=== PATIENT | female | born 1995 | race Two or more races ===

== ENCOUNTER 2016-07-22 01:25 | Inpatient (IN) | payer OTHER ==
[~2016-07-22] VITALS: Ht 162.6 cm; Wt 84.8 kg
[~2016-07-22 01:25] MED LIST: FAMC500T2 PO; HYDR25CA PO; IBUP-1060 PO; PNV1TABL25 PO
[2016-07-22] MEDS ORDERED: IV RINGERS,LACTATED 1000ML 1,000 ML IV SCH (02:05)
[2016-07-22] MEDS ORDERED: LIDOCAINE 1% PF 30 ML VIAL. INJ PRN (02:15)
[2016-07-22] MEDS ORDERED: ONDANSETRON PF 4 MG/2 ML VIAL. IV PRN ×2 (02:15→04:00)
[2016-07-22] MEDS ORDERED: TERBUTALINE 1 MG/ML VIAL. SQ PRN (02:15)
[2016-07-22] MEDS ORDERED: OXYTOCIN 30 UNIT/500 ML PREMIX 500 ML IV PRN ×2 (02:15→10:30)
[2016-07-22] MEDS ORDERED: 0.9 % SODIUM CHLORIDE 10 ML DISP.SYRIN. IV PRN ×2 (02:15→10:30)
[2016-07-22] MEDS ORDERED: fentaNYL PF VIAL 100 MCG/2 ML VIAL IV PRN (02:15)
[2016-07-22] MEDS ORDERED: IBUPROFEN 600 MG TABLET. PO PRN (02:15)
[2016-07-22 02:44] LABS: BILIRUBIN,URINE SMALL (NEG); GLUCOSE,URINE NEGATIVE (NEG); NITRITE,URINE NEGATIVE (NEG); PROTEIN,URINE 30 mg/dL (NEG-TRACE)
[2016-07-22 02:49] LABS: RBC,URINE 0 /HPF (0-2)
[2016-07-22 02:50] LABS: BACTERIA,URINE FEW /HPF (0-FEW); SQUAMOUS EPITHELIAL CELL,UR MOD /LPF
[2016-07-22 02:51] LABS: BARBITURATES NEG (NEG); BENZODIAZEPINES NEG (NEG); CANNABINOIDS NEG (NEG); COCAINE NEG (NEG); METHADONE NEG (NEG); OPIATES NEG (NEG); PHENCYCLIDINE NEG (NEG)
[2016-07-22 02:53] VITALS: BP 124/59
[2016-07-22 02:57] LABS: BASO % 1 % (0-3); EOS % 1 % (0-3); HEMATOCRIT 34.9 % (36.0-47.0); HEMOGLOBIN 11.6 g/dL (12.0-15.5); LYMPH # 1.2 x10^3/uL (1.0-4.8); LYMPH % 15 % (24-48); MEAN CORPUSCULAR HEMOGLOBIN 27 pg (25-35); MEAN CORPUSCULAR HGB CONC 33 g/dL (31-37); MEAN CORPUSCULAR VOLUME 81 fL (79-100); MONO % 5 % (0-9); NEUT % 80 % (31-73); PLATELET COUNT 229 x10^3/uL (140-400); RED BLOOD COUNT 4.33 x10^6/uL (3.50-5.40); RED CELL DISTRIBUTION WIDTH 16.2 % (11.5-14.5); WHITE BLOOD COUNT 8.6 x10^3/uL (4.0-11.0)
[2016-07-22] MEDS ORDERED: PENICILLIN G K 5,000,000 UNIT in IV NORMAL SALINE 100ML 100 ML IV ONE (03:00)
[2016-07-22] MEDS ORDERED: ROPIVacaine 0.2% IN 0.9%NACL PF 40 MG/20 ML DISP.SYRIN. ONE ×2 (03:00→03:14)
[2016-07-22] MEDS ORDERED: L&D EPIDURAL CASSETTE 100 ML EP ONE (03:14)
[2016-07-22] MEDS ORDERED: fentaNYL PF VIAL 100 MCG/2 ML VIAL EPI ONE (04:00)
[2016-07-22] MEDS ORDERED: ROPIVacaine 0.2% PF 10 ML VIAL. EPI ONE (04:00)
[2016-07-22] MEDS ORDERED: NALOXONE 0.4 MG/ML VIAL. IV PRN (04:00)
[2016-07-22] MEDS ORDERED: L&D EPIDURAL CASSETTE 100 ML EP PRN (04:00)
[2016-07-22] MEDS ORDERED: ePHEDrine PF IN SALINE 50 MG/5 ML DISP.SYRIN IV PRN (04:00)
[2016-07-22] MEDS: IV RINGERS,LACTATED 1000ML 1,000 ML IV SCH ×2 (04:11→08:02)
[2016-07-22] MEDS ORDERED: PENICILLIN G K 2,500,000 UNIT in IV NORMAL SALINE 50ML 50 ML IV SCH (07:00)
--- NOTE | 2016-07-22 10:22 | PDOC1 ---
OB - History Hx of Present Care: Limited Care Ultrasounds: No ultrasounds Obstetrical Complications: None Medical Complications: None Past Family/Social History * Past Medical, Surgical, Family and Obstetric Histories reviewed from chart. Blood Type: Unknown Rubella: Unknown RPR/VDRL: Unknown GBS Status: Unknown HBsAG: Unknown OB - Chief Complaint & HPI Date of Admission: Date of Admission: July 22, 2016 at 01:25 Chief Complaint/History : 3 Para: 2 EGA: 39 Reason for admission: active labor Admission Nurse Assessment Rev: Yes Problems: OB - Admission Exam Physical Exam Vitals: VS - Last 72 Hours, by Label Date Time Temp Pulse Resp B/P (MAP) Pulse Ox O2 Delivery O2 Flow Rate FiO2 07/22/16 04:12 18 07/22/16 03:00 18 07/22/16 02:53 96.6 77 18 124/59 (80) Room Air 96.6 07/22/16 02:44 18 HEENT: Normal Heart: Regular Rate Lungs: Clear Abdomen: Gravid, Non tender, Soft Extremities: Edema Reflexes: Normal Cervical Dilatation: 3cm Effacement: 75% Station: -2 Membranes: Intact Amniotic Fluid: Thick Meconium Heart Rate: Normal Accelerations: Accelerations Present Decelerations: No decelerations Halfway Variability: Moderate Contractions on Admission: < 5 Minutes Apart Intensity: Moderate Text A: 39 wks IUP Active labor GBS unknown P: Admit for labor management. Start Pen G prophylaxis. MICHAEL QUINTANA Jr, MD July 22, 2016 10:22
--- NOTE | 2016-07-22 10:23 | PDOC ---
VAGINAL DELIVERY DATE DATE: 07/22/16 TIME: 10:22 : 3 Para: 3 EGA: 39 VAGINAL DELIVERY: VTX VACCUM ASSISTED: No PLACENTA: Spontaneous 8/8 SEX: Male WEIGHT Weight [ pending] Nuchal Cord: No Amniotic Fluid: Thin Meconium PAIN: Epidural EPISIOTOMY: No EXTENSION: No EBL 300 ml COMPLICATIONS none CONDITION pt. stable Signs of Intrauterine Infectio: None Shoulder Dystocia: No Problems: MICHAEL QUINTANA Jr, MD July 22, 2016 10:23
[2016-07-22] MEDS ORDERED: HYDROCORTISONE 1% TOPICAL OINTMENT 30GM TUBE. TP PRN (10:30)
[2016-07-22] MEDS ORDERED: ACETAMINOPHEN 325 MG TABLET. PO PRN (10:30)
[2016-07-22] MEDS ORDERED: MAG HYDROX/ALUMINUM HYD/SIMETH 30 ML ORAL.SUSP PO PRN (10:30)
[2016-07-22] MEDS ORDERED: MAGNESIUM HYDROXIDE 2,400 MG/30 ML ORAL.SUSP. PO PRN (10:30)
[2016-07-22] MEDS ORDERED: diphenhydrAMINE HCL 25 MG CAPSULE PO PRN (10:30)
[2016-07-22] MEDS ORDERED: BENZOCAINE 20% TOPICAL AEROSOL SPRAY 57GM CAN. TP PRN (10:30)
[2016-07-22] MEDS ORDERED: SIMETHICONE 80 MG TAB.CHEW PO PRN (10:30)
[2016-07-22] MEDS ORDERED: MMR per PROTOCOL. MC PRN (10:30)
[2016-07-22] MEDS ORDERED: ZOLPIDEM 5 MG TABLET. PO PRN (10:30)
[2016-07-22] MEDS ORDERED: PHENYLEPH/MINERAL OIL/PETROLAT RECTAL OINTMENT 28GM TUBE. RC PRN (10:30)
[2016-07-22] MEDS: IBUPROFEN 800 MG TABLET. PO PRN ×2 (12:31→22:25)
[2016-07-22 12:45] VITALS: BP 105/62
[2016-07-22 14:10] VITALS: BP 114/65
[2016-07-22] MEDS: oxyCODONE/APAP 5/325 1 TAB TABLET PO PRN (17:44)
[2016-07-22 18:32] VITALS: BP 116/78
[2016-07-22 21:54] VITALS: BP 122/71
[2016-07-23] MEDS: oxyCODONE/APAP 5/325 1 TAB TABLET PO PRN ×2 (00:32→22:20)
[2016-07-23 02:00] VITALS: BP 96/61
--- NOTE | 2016-07-23 04:45 | PDOC ---
Provider Note Provider Note Doing well VSS Uterus NTTP FU in AM DARYL WEIR MD July 23, 2016 04:45
[2016-07-23 05:07] VITALS: BP 97/49
[2016-07-23 05:15] LABS: BASO # 0.1 x10^3/uL (0.0-0.2); BASO % 1 % (0-3); EOS % 1 % (0-3); HEMOGLOBIN 10.9 g/dL (12.0-15.5); LYMPH # 1.8 x10^3/uL (1.0-4.8); LYMPH % 18 % (24-48); MEAN CORPUSCULAR HEMOGLOBIN 27 pg (25-35); MEAN CORPUSCULAR HGB CONC 33 g/dL (31-37); MEAN CORPUSCULAR VOLUME 81 fL (79-100); MONO % 5 % (0-9); NEUT % 77 % (31-73); PLATELET COUNT 220 x10^3/uL (140-400); RED BLOOD COUNT 4.09 x10^6/uL (3.50-5.40); RED CELL DISTRIBUTION WIDTH 16.1 % (11.5-14.5); WHITE BLOOD COUNT 10.4 x10^3/uL (4.0-11.0)
[2016-07-23] MEDS: FERROUS SULFATE 325 MG TABLET. PO SCH ×2 (08:43→17:10)
[2016-07-23] MEDS: IBUPROFEN 800 MG TABLET. PO PRN ×2 (08:43→15:58)
[2016-07-23] MEDS: DOCUSATE SODIUM 100 MG CAPSULE. PO PRN ×2 (08:43→22:20)
[2016-07-23 11:30] VITALS: BP 99/51
[2016-07-23 15:15] VITALS: BP 120/69
[2016-07-23 20:45] VITALS: BP 110/69
[2016-07-24 06:00] VITALS: BP 118/71
[2016-07-24] MEDS: IBUPROFEN 800 MG TABLET. PO PRN (06:05)
[2016-07-24] MEDS: FERROUS SULFATE 325 MG TABLET. PO SCH (08:17)
--- NOTE | 2016-07-24 08:38 | PDOC3 ---
OB DISCHARGE SUMMARY DATE OF ADMISSION: 07/22/16 DATE OF DISCHARGE: 07/24/16 REASON FOR ADMISSION: Onset of labor INTRAPARTUM PROCEDURES: Spontanous Vag Deliv PROCEDURES: None OPERATIONS: None DISCHARGE DIAGNOSIS: Term Delivered DISCHARGE INFORMATION: Activity, Diet HOSPITAL COURSE Unremarkable CONDITION AT DISCHARGE Stable DARYL WEIR MD July 24, 2016 08:38
[2016-07-24] MEDS ORDERED: HYDR-971 PO (08:40)
[2016-07-24] MEDS ORDERED: NAPR500T3 PO (08:40)
[2016-07-24 11:30] VITALS: BP 110/55
[2016-07-26 11:21] LABS: RPR REFLEX Non Reactive (Non Reactive)
== END 2016-07-24 12:31 | disposition home or self-care (01) | DRG 775 ==
LOC: OBSVTOIN 01:25 → 3 SO LND 01:25 → 3 NORTH 13:03
PROVIDERS: ADMIT Obstetrics & Gynecology; ATTEND Obstetrics & Gynecology
PROC: 10E0XZZ Delivery of Products of Conception, External Approach (ICD-10-PCS; principal; 2016-07-22)
PROC: 3E0S3CZ (ICD-10-PCS; 2016-07-22)
PROC: 00HU33Z Insertion of Infusion Device into Spinal Canal, Percutaneous Approach (ICD-10-PCS; 2016-07-22)
DX: O77.0 Labor and delivery complicated by meconium in amniotic fluid (principal); Z3A.39 39 weeks gestation of pregnancy; Z37.0 Single live birth
CPT/HCPCS: 36415; 81001; 85027; 86593; 86703; 86850; 86900; 86901; 87086; 87340; 87341; G0378; G0481; J2540; J2590; J2795; J3010; J7120